=== PATIENT | female | born 1950 | race Caucasian/White ===

== ENCOUNTER 2020-11-27 14:16 | Emergency (ER) | payer OTHER ==
--- OUTSIDE RECORDS SUMMARY | 2020-11-27 14:19 | XMS REPORT | Continuity of Care Document ---
:1950 Author Organization [facility] t Address [address] [place] [address] [place] [address] Care Team Providers Name Role Phone Meño MCGEE, Phoebej Primary Care Physician Chon Moon MD Attending Clinician Rosette Montes Attending Clinician Dwaine Carbajal Attending Clinician Martin Garcia Attending Clinician LORY KHALIL Attending Clinician Unavailable LORY KHALIL Admitting Clinician Unavailable Payers Payer Name Policy Type Policy Effective Date Expiration Date Sour ce Number UHC MEDICAREUHC [id number] 2020 [place] MEDICARE 00:00:00 Bahai [id number] /07/2020-PresentHM O Problems Condition Condition Condition Status Onset Resolution Last Treating Co mments Source Name Details Category Date Date Treatment Clinician Date Deep vein Deep vein Disease Active Suzanne sosan thrombosis thrombosis 7-12 Me thodi 00:00: st 00 Bowel Bowel Disease Active [facility] obstruct[facility] obstructio 9-12 Inge kes - n n [facility]: [facility] Arthritis Problem Active 2019-01-08 Me moria (disorder) 11-04 13:55:47 l 00:00: Osmar Arthritis 00 (disorder) Active 11/04/2014 Problem 01/08/2019 Data migrated from [facility] on 01/29/15.Flash a migrated from [facility] on 12/24/14. [facility] ARTHRITIS Condition Active 2014-11-04 Memoria - 14:41:12 l 00:00: [place] ARTHRITIS 00 Active 11/04/2014 Condition 5 [facility] OTHER Condition Active 2014-11-04 Mem oria UNSPECIFIE 12-31 14:41:12 l D BACK OTHER 00:00: [place] DISORDERS UNSPECIFIE 00 D BACK DISORDERS Active 12/31/2013 Condition 5 [facility] Cobalamin Problem Active 2019-01-08 Me moria deficiency 12-14 13:55:47 l (disorder) 00:00: Nathan n Cobalamin 00 deficiency (disorder) Active 12/14/2013 Problem 01/08/2019 Data migrated from [facility] on 12/21/14. [facility] CELLULITIS Condition Active 2014-11-04 Memoria 12-14 14:41:12 l 00:00: [place] CELLULITIS 00 Active 12/14/2013 Condition 5 [facility] VITAMIN Condition Active 2014-11-04 Me moria B12 12-14 14:41:12 l DEFICIENCY VITAMIN 00:00: Her villatoro B12 00 DEFICIENCY Active 12/14/2013 Condition 5 [facility] ABDOMINAL Condition Active 2014-11-04 Memoria PAIN, 9- 14:41:12 l ACUTE 00:00: [place] ABDOMINAL 00 PAIN, ACUTE Active 03/27/2013 Condition 5 [facility] ACUTE Condition Active 2014-11-04 Mem oria SINUSITIS, 02-21 14:41:12 l UNSPECIFIE ACUTE 00:00: Miladys nn D SINUSITIS, 00 UNSPECIFIE D Active 02/22/2012 Condition 5 [facility] ACUTE Condition Active 2014-11-04 Mem oria BRONCHITIS 02-21 14:41:12 l ACUTE 00:00: [place] BRONCHITIS 00 Active 02/22/2012 Condition 5 [facility] Abdominal Problem Resolve 2019-01-08 M emoria aortic d 13:55:47 l aneurysm [place] (disorder) Abdominal aortic aneurysm (disorder) Resolved Problem 01/08/2019 [facility] Backache Problem Resolve 2019-01-08 Me moria (finding) d 13:55:47 l Backache Nathan n (finding) Resolved Problem 01/08/2019 [facility] Atheroscle Problem Resolve 2019-01-08 Memoria rosis of d 13:55:47 l coronary [place] artery Atheroscle (disorder) rosis of coronary artery (disorder) Resolved Problem 01/08/2019 [facility] Hypertensi Problem Resolve 2019-01-08 Memoria ve d 13:55:47 l disorder, [place] systemic Hypertensi arterial ve (disorder) disorder, systemic arterial (disorder) Resolved Problem 01/08/2019 [facility] Proteinuri Problem Resolve 2019-01-08 Memoria a d 13:55:47 l (finding) Osmar Proteinuri a (finding) Resolved Problem 01/08/2019 [facility] Raynaud's Problem Resolve 2019-01-08 M emoria phenomenon d 13:55:47 l (disorder) Nathan n Raynaud's phenomenon (disorder) Resolved Problem 01/08/2019 [facility] Cerebrovas Problem Resolve 2019-01-08 Memoria cular d 13:55:47 l accident O[place] (disorder) Cerebrovas cular accident (disorder) Resolved Problem 01/08/2019 [facility] Benign Problem Active 2019-01-08 Memor ia hypertensi 13:55:47 l on Benign [place] (disorder) hypertensi on (disorder) Active Problem 01/08/2019 Data migrated from [facility] on 12/21/14. Medical Group Coronary Problem Active 2019-01-08 Mem oria arterioscl 13:55:47 l erosis Coronary Nathan n (disorder) arterioscl erosis (disorder) Active Problem 01/08/2019 Data migrated from [facility] on 12/21/14. [facility] Group Crohn's Problem Active 2019-01-08 Shoaib elpidio disease 13:55:47 l (disorder) Crohn's Her villatoro disease (disorder) Active Problem 01/08/2019 Data migrated from [facility] on 12/21/14. [facility] Allergic Problem Active 2019-01-08 Mem oria rhinitis 13:55:47 l (disorder) Allergic He rmann rhinitis (disorder) Active Problem 01/08/2019 [facility] CAD Condition Active 2014-11-04 Mem oria 14:41:12 l CAD [place] Active Condition 11/04/2014 Medical Group HTN Condition Active 2014-11-04 Mem oria 14:41:12 l HTN Osmar Active Condition 11/04/2014 [facility] Group CROHN'S Condition Active 2014-11-04 Me moria DISEASE 14:41:12 l CROHN'S Osmar DISEASE Active Condition 11/04/2014 [facility] Group RAYNAUDS Condition Active 2014-11-04 M emoria SYNDROME 14:41:12 l RAYNAUDS Nathan n SYNDROME Active Condition 11/04/2014 Medical Group HEMATURIA, Condition Active 2014-11-04 Memoria HX OF 14:41:12 l [place] HEMATURIA, HX OF Active Condition 11/04/2014 [facility] Allergies, Adverse Reactions, Alerts Allergy Allergy Status Severity Reaction(s) Onset Inactive Treating Comm ents Source Name Type Date Date Clinician Levoflox Propensi Active Hives [place] ac[place] ty to 02-02 [facility] adverse 00:00: st reaction 00 s to drug Morphine Propensi Active Anaphylaxis Throat [place] ty to 02-02 closes [facility] adverse 00:00: off st reaction 00 s to drug Levoflox Propensi Active [facility]05 [facility] adverse [facility] reaction 00 Center s Morphine Drug Active [facility] Breath 04-05 [facility] morphine morphine Active Memori a <sup>1, <sup>1, 02-21 l 2</sup> 2</sup> 05:00: [place] 00 levoflox levoflox Active Memori a acin<sup acin<sup 7-31 l >3</sup> >3</sup> 05:00: Nathan n 00 ASTRAMOR ASTRAMOR Active Memori a PH PH 7-31 l 00:00: LEVAQUIN LEVAQUIN Active Memori a 7-31 l 00:00: Social History Social Habit Start Date Stop Date Quantity Comments Source Sex Ass[birth year] At [birth year] Jack españa 00:00:00 00:00:00 Smoking Status Start Date Stop Date Source Social History 2018-03-14 19:49:11 [facility] Medications Ordered Filled Start Stop Current Ordering Indication Dosage Frequency Signature Comments Components Source Medication Medication Date Date Medication? Clinician (SIG) Name Name Acetaminoph 2017-07 Yes 1 tab, PO, Memoria en 325 MG / 0-26 BID, PRN l Hydrocodone 14:44: Pain, # 60 [place] Bitartrate 00 tab, 0 7.5 MG Oral Refill(s), Tablet given to [Elaine patient 7.5/325] Acetaminoph No 1 tab, PO, Memoria en 325 MG / 9-25 BID, PRN l Hydrocodone 18:19: Pain, # 60 Osm[place] Bitartrate 00 tab, 0 7.5 MG Oral Refill(s), Tablet given to [Elaine patient 7.5/325] Acetaminoph No 1 tab, PO, Memoria en 325 MG / 8-30 BID, PRN l Hydrocodone 14:40: Pain, # 60 [place] Bitartrate 00 tab, 0 7.5 MG Oral Refill(s), Tablet given to [Elaine patient 7.5/325] predniSONE Yes See Memoria 10 mg oral 8-21 Instructio l tablet 20:30: ns, 1 tab Nathan n 36 PO BID for 1 week then 1 po daily for 1 week then 1/2 pill daily for 1 week., # 30 tab, 1 Refill(s), Pharmacy: [facility] [address] Alprazolam Yes 0.25 mg = Me moria 0.25 MG 8-21 1 tab, PO, l Oral Tablet 20:29: PRN, PRN He rmann [Xanax] 48 as needed for anxiety, # 30 tab, 3 Refill(s) Metronidazo 2018-0 Yes 250 mg = 1 Memoria le 250 MG 8-21 tab, PO, l Oral Tablet 20:28: TID, # 30 H ermann [Flagyl] 56 tab, 1 Refill(s), Pharmacy: [facility] [address] Omeprazole 2018-0 Yes 20 mg = 1 Me moria 20 MG 8-21 cap, PO, l Enteric 20:11: Daily, # Nathan n Coated 35 30 cap, 11 Capsule Refill(s), [Prilosec] Pharmacy: [facility] [address] isosorbide 2017- Yes 30 mg = 1 Me moria mononitrate 8-21 tab, PO, l 30 mg oral 19:54: QAM, # 30 He rmann tablet, 00 tab, 0 extended Refill(s) release Acetaminoph 2017-0 No 1 tab, PO, Memoria en 325 MG / 7-19 BID, PRN l Hydrocodone 22:01: Pain, # 60 [place] Bitartrate 00 tab, 0 7.5 MG Oral Refill(s), Tablet given to [Elaine patient 7.5/325] metoprolol 2018-0 Yes 25mg Q.5D Take 25 mg [place] tartrate 7-17 by mouth 2 Metho di (LOPRESSOR) 12:46: (two) st 25 mg 20 times a tablet day. isosorbide 2018-0 Yes 30mg QD Take 30 mg [place] mononitrate 7-17 by mouth Meth ortiz (IMDUR) 30 12:46: daily. st MG 24 hr 20 tablet rivaroxaban 2018-0 Yes 20mg QD Take 20 mg Santiago (XARELTO) 7-17 by mouth Method i 20 mg 12:46: daily. st tablet 20 omeprazole 2018-0 Yes 20mg QD Take 20 mg [place] (PriLOSEC) 7-17 by mouth Metho di 20 MG 12:46: daily. st capsule 20 Acetaminoph 2018-0 Yes 1 tab, PO, Memoria en 325 MG / 4-26 BID, PRN l Hydrocodone 22:17: Pain, # 60 Osm[place] Bitartrate 00 tab, 0 7.5 MG Oral Refill(s), Tablet given to [Elaine patient 7.5/325] Acetaminoph No 1 tab, PO, Memoria en 325 MG / 3-29 BID, PRN l Hydrocodone 21:21: Pain, # 60 Osm[place] Bitartrate 00 tab, 0 7.5 MG Oral Refill(s), Tablet given to [Elaine patient 7.5/325] Advair Yes 1 puff, Memoria Diskus 250 3-21 INHALATION l mcg-50 mcg 16:56: , BID, # 1 H ermann inhalation 00 ea, 3 powder Refill(s) predniSONE Yes See Memoria 10 mg oral 3-21 Instructio l tablet 16:51: ns, 1 tab Nathan n 35 PO BID for 1 week then 1 po daily for 1 week then 1/2 pill daily for 1 week., # 30 tab, 1 Refill(s) Metronidazo Yes 250 mg = 1 Memoria le 250 MG 3-21 tab, PO, l Oral Tablet 16:50: TID, # 30 H ermann [Flagyl] 55 tab, 1 Refill(s) Symbicort Yes 2 puff, Memor ia 80/4.5 3-21 INHALATION l inhalation 16:15: , BID, # Her villatoro aerosol 00 6.9 gm, 0 with Refill(s) adapter Acetaminoph No 1 tab, PO, Memoria en 325 MG / 3-01 BID, PRN l Hydrocodone 14:28: Pain, # 60 [place] Bitartrate 00 tab, 0 7.5 MG Oral Refill(s), Tablet given to [Elaine patient 7.5/325] Alprazolam Yes 0.25 mg = Me moria 0.25 MG 2-14 1 tab, PO, l Oral Tablet 14:45: PRN, PRN He rmann [Xanax] 00 as needed for anxiety, # 30 tab, 3 Refill(s) Acetaminoph No 1 tab, PO, Memoria en 325 MG / 2-01 BID, PRN l Hydrocodone 21:50: Pain, # 60 [place] Bitartrate 00 tab, 0 7.5 MG Oral Refill(s), Tablet given to [Elaine patient 7.5/325] predniSONE 2016-07 Yes 10 mg = 1 Me moria 10 mg oral 2-29 tab, PO, l tablet 18:11: BID, # 20 Nathan n 00 tab, 0 Refill(s), Pharmacy: [facility] Metronidazo 2016-07 Yes 250 mg = 1 Memoria le 250 MG 2-29 tab, PO, l Oral Tablet 18:11: TID, # 30 H ermann [Flagyl] 00 tab, 0 Refill(s), Pharmacy: [facility] Metronidazo 2016-07 No 250 mg = 1 Memoria le 250 MG 2-29 tab, PO, l Oral Tablet 16:13: TID, # 30 H ermann [Flagyl] 00 tab, 0 Refill(s) predniSONE 2016-07 No 10 mg = 1 Me moria 10 mg oral 2-29 tab, PO, l tablet 16:13: Daily, # Osmar 00 14 tab, 0 Refill(s) adalimumab Yes Crohn's 40mg Q14D Inject [address] [facility] (HUMIRA) 40 9-13 disease mg [facility] - mg/0.8 mL 15:01: subcutaneo Me dical injection 39 usly every Cent er 14 (fourteen) days. rivaroxaban Yes 20mg QD Take [address] [facility] (XARELTO) 9-13 by mouth [facility] - 20 mg Tab 15:01: daily. Medica l tablet 39 Center metoprolol Yes 25mg Q.5D Take [address] (LOPRESSOR) 9-13 by mouth 2 Inge kes - 25 MG 15:01: (two) Medical tablet 39 times Center daily. omeprazole Yes 20mg QD Take [address] (PRILOSEC) 9-13 by mouth [facility] - 20 MG 15:01: daily. Medical capsule 39 Center HYDROcodone Yes 1{tbl} Take [address] -acetaminop 9-13 tablet by Maximiliano vasquez (NORCO 15:01: mouth Medica l 7.5-325) 39 every 4 Center 7.5-325 mg (four) per tablet hours as needed for Pain. ZANTAC 150 Yes BID Memoria MG TABS 4-13 l 14:41: [place] 12 XANAX 0.25 2014-0 Yes 1 po as Shoaib elpidio MG TABS 4-13 needed l 14:41: 12 CEFTIN 250 2014-0 Yes 1 po bid Mem oria MG TABS 4-13 l 00:00: MEDROL 2014-0 Yes as Memoria (MARISELA) 4 MG 4-08 directed l TABS 00:00: PREDNISONE 2014-0 Yes 1 po bid Mem oria 5 MG TABS 7-31 l 00:00: METRONIDAZO 2013-0 Yes 1 po tid Me moria LE 250 MG 7-31 l TABS 00:00: PROMETHAZIN 2013-0 Yes 1 po q6h Me moria E HCL 25 MG 7-31 prn nausea l TABS 00:00: PREDNISONE 2013-0 Yes 1 po bid Mem oria 5 MG TABS 7-31 l 00:00: PROMETHAZIN 2013-0 Yes 1 po q6h Me moria E HCL 25 MG 7-31 prn nausea l TABS 00:00: PREDNISONE 2014-0 No 1 po bid Mem oria 5 MG TABS 7-31 l 00:00: METRONIDAZO 2013-0 No 1 po tid Me moria LE 250 MG 7-31 l TABS 00:00: PREDNISONE 2013-0 No 1 po bid Mem oria 5 MG TABS 7-31 l 00:00: CYCLOBENZAP 2013-0 No 1 po qhs Me moria RINE HCL 10 6-09 l MG TABS 00:00: MOBIC 15 MG 2013-0 No 1 po qam Me moria TABS 6-09 pc l 00:00: CYCLOBENZAP 2013-0 No 1 po qhs Me moria RINE HCL 10 6-09 l MG TABS 00:00: CYCLOBENZAP 2013-0 No 1 po qhs Me moria RINE HCL 10 6-09 l MG TABS 00:00: KEFLEX 500 2013-0 No 1 po td Shoaib elpidio MG CAPS 5-23 l 00:00: BACTROBAN 2 2013-0 No apply to Me moria % OINT 5-23 leg bid l 00:00: CYANOCOBALA 2012-07 Yes 1 cc im q M emoria MIN 1000 0-16 week l MCG/ML SOLN 00:00: XARELTO 20 Yes 1 po qd Shoaib elpidio MG TABS 9-16 l 00:00: PREDNISONE No 1/2 po qpm M emoria 10 MG TABS 9-16 l 00:00: PREDNISONE No 1/2 po qpm M emoria 10 MG TABS 9-16 l 00:00: PREDNISONE No 1/2 po qpm M emoria 10 MG TABS 9-16 l 00:00: METRONIDAZO No 1 po tid Me moria LE 500 MG 9-05 l TABS 00:00: METRONIDAZO No 1 po tid Me moria LE 500 MG 9-05 l TABS 00:00: ASPIRIN LOW No 1 po daily Memoria DOSE 81 MG 9-03 l TABS 00:00: PLAVIX 75 No 1 po daily Me moria MG TABS 9-03 l 00:00: ISOSORBIDE Yes TAKES ONE Me moria MONONITRATE 9-03 DAY l ER 30 MG 00:00: 24H-TAB METOPROLOL Yes TAKES Memori a TARTRATE 25 9-03 TWICE A l MG TABS 00:00: DAY PO ISOSORBIDE Yes TAKES ONE Me moria MONONITRATE 9-03 DAY l ER 30 MG 00:00: [place] [id number] METOPROLOL Yes TAKES Memori a TARTRATE 25 9-03 TWICE A l MG TABS 00:00: DAY PO METOPROLOL Yes TAKES Memori a TARTRATE 25 9-03 TWICE A l MG TABS 00:00: DAY PO NORCO Yes 1 po q6h Memoria 7.5-325 MG 2-28 prn pain l TABS 00:00: BIAXIN 500 No 1 po bid Mem oria MG TABS 7-31 pc l 00:00: TUSSIONEX 2011-0 No 1 tsp harry q Me moria PENNKINETIC 7-31 12 h prn l ER 10-8 00:00: cough [place] MG/5ML LQCR 00 Vital Signs Vital Name Observation Time Observation Value Comments Source Body height 2020-08-06 12:53:00 165.1 cm Jack Stafford Body weight 2020-08-06 12:53:00 55.792 kg Jack [place] BMI 2020-08-06 12:53:00 20.47 kg/m2 Santiago Bahai BMI Calculated 2018-03-14 19:46:00 Memori al [place] Weight 2018-03-14 19:46:00 [facility] [place] Height 2018-03-14 19:46:00 165.1 cm [facility] [place] Systolic (mm Hg) 2018-03-14 19:46:00 Shoaib rial [place] Diastolic (mm Hg) 2018-03-14 19:46:00 Mem orial [place] Heart Rate 2018-03-14 19:46:00 [facility] [place] Weight 2017-10-12 16:11:00 [facility] [place] BMI Calculated 2017-10-12 16:11:00 Memori al [place] Height 2017-10-12 16:11:00 165.1 cm [facility] [place] Heart Rate 2017-10-12 16:11:00 [facility] [place] Systolic (mm Hg) 2017-10-12 16:11:00 Shoaib rial [place] Diastolic (mm Hg) 2017-10-12 16:11:00 Mem orial [place] Weight 2014-11-04 19:41:12 [facility] [place] Temperature Oral (F) 2014-11-04 19:41:12 98 F [facility] [place] Heart Rate 2014-11-04 19:41:12 [facility] [place] Systolic (mm Hg) 2014-11-04 19:41:12 Shoaib rial [place] Diastolic (mm Hg) 2014-11-04 19:41:12 Mem orial [place] Weight 2014-06-11 22:10:21 [facility] [place] Temperature Oral (F) 2014-06-11 22:10:21 97 F [facility] [place] Heart Rate 2014-06-11 22:10:21 [facility] [place] Systolic (mm Hg) 2014-06-11 22:10:21 Shoaib rial [place] Diastolic (mm Hg) 2014-06-11 22:10:21 Mem orial [place] Weight 2014-03-05 21:20:31 [facility] [place] Heart Rate 2014-03-05 21:20:31 [facility] [place] Systolic (mm Hg) 2014-03-05 21:20:31 Shoaib rial [place] Diastolic (mm Hg) 2014-03-05 21:20:31 Mem orial [place] Weight 2014-02-21 19:57:22 [facility] [place] Temperature Oral (F) 2014-02-21 19:57:22 98.4 F [facility] [place] Heart Rate 2014-02-21 19:57:22 [facility] [place] Systolic (mm Hg) 2014-02-21 19:57:22 Shoaib rial [place] Diastolic (mm Hg) 2014-02-21 19:57:22 Mem orial [place] Weight 2013-12-31 19:41:11 [facility] [place] Heart Rate 2013-12-31 19:41:11 [facility] [place] Temperature Oral (F) 2013-12-31 19:41:11 97.3 F [facility] [place] Systolic (mm Hg) 2013-12-31 19:41:11 Shoaib rial [place] Diastolic (mm Hg) 2013-12-31 19:41:11 Mem orial [place] Weight 2013-12-14 14:54:41 [facility] [place] Heart Rate 2013-12-14 14:54:41 [facility] [place] Systolic (mm Hg) 2013-12-14 14:54:41 Shoaib rial [place] Diastolic (mm Hg) 2013-12-14 14:54:41 Mem orial [place] Weight 2013-05-15 17:20:33 [facility] [place] Heart Rate 2013-05-15 17:20:33 [facility] [place] Systolic (mm Hg) 2013-05-15 17:20:33 Shoaib rial [place] Diastolic (mm Hg) 2013-05-15 17:20:33 Mem orial [place] Weight 2013-05-09 15:51:21 [facility] [place] Heart Rate 2013-05-09 15:51:21 [facility] [place] Systolic (mm Hg) 2013-05-09 15:51:21 Shoaib rial [place] Diastolic (mm Hg) 2013-05-09 15:51:21 Mem orial [place] Weight 2013-04-09 18:32:21 [facility] [place] Heart Rate 2013-04-09 18:32:21 [facility] [place] Systolic (mm Hg) 2013-04-09 18:32:21 Shoaib rial [place] Diastolic (mm Hg) 2013-04-09 18:32:21 Mem orial [place] Weight 2013-03-27 18:35:10 [facility] [place] Heart Rate 2013-03-27 18:35:10 [facility] [place] Systolic (mm Hg) 2013-03-27 18:35:10 Shoaib rial [place] Diastolic (mm Hg) 2013-03-27 18:35:10 Mem orial [place] Height 2012-02-22 19:54:11 [facility] [place] Weight 2012-02-22 19:54:11 [facility] [place] Heart Rate 2012-02-22 19:54:11 [facility] [place] Systolic (mm Hg) 2012-02-22 19:54:11 Shoaib rial [place] Diastolic (mm Hg) 2012-02-22 19:54:11 Mem orial [place] Temperature Oral (F) 2012-02-22 19:54:11 97 F [facility] [place] Procedures Procedure Date / Time Performing Clinician Source Performed CT ENTEROGRAPHY 2020-08-06 14:06:34 Jack Huffman POC CREATININE 2020-08-06 13:12:00 Jad Moon ESTIMATED GFR 2020-08-06 13:12:00 Jad Moon ALBUMIN LEVEL 2020-07-31 16:30:00 Jack Huffman PREALBUMIN LEVEL 2020-07-31 16:30:00 Jack Huffman smoking/tobacco cessation, 2013-03-27 18:35:10 Pam Prasad patient education and counseling mammogram 2006-10-07 18:42:00 Renard villatoro bone density 2006-10-07 18:41:30 Renard villatoro Appendectomy [facility] [place] Cholecystectomy [facility] [place] Hip [facility] replacement<sup>1</sup> Total knee [facility] [place] replacement<sup>2</sup> Plan of Care Planned Activity Planned Date Details Comments Source Future Scheduled 2021-02-22 INFLUENZA VACCINE [place] [facility] Test 00:00:00 [code = INFLUENZA VACCINE] Future Scheduled 2000 BREAST CANCER [facility]odist Test 00:00:00 SCREENING [code = BREAST CANCER SCREENING] Future Scheduled 2000 COLONOSCOPY SCREENING [place] [facility]ai Test 00:00:00 [code = COLONOSCOPY SCREENING] Future Scheduled 2000 SHINGLES VACCINES (#1) H pushpa Bahai Test 00:00:00 [code = SHINGLES VACCINES (#1)] Future Scheduled 1968 Hepatitis C screening [place] [facility] Test 00:00:00 (procedure) [code = 483780790] Future Scheduled 1966 COVID-19 VACCINE (1) Suzannedonnell arguello Bahai Test 00:00:00 [code = COVID-19 VACCINE (1)] Future Scheduled 1956 65+ PNEUMOCOCCAL Santiago [facility]ai Test 00:00:00 VACCINE (1 of 2 - PPSV23) [code = 65+ PNEUMOCOCCAL VACCINE (1 of 2 - PPSV23)] Encounters Start End Encounter Admission Attending Care Care Encounter Source Date/Time Date/Time Type Type Clinicians Facility Department ID 2020-08-06 2020-08-06 Outpatient JAD [facility] [id number] [place] 00:00:00 00:00:[address] 2020-07-31 2020-07-31 [facility] [id number] [place] 00:00:00 00:00:[address] 2018-06-21 2018-06-21 Outpatient Solomon [facility] [id number] 08:00:00 08:00:00 Skye 26 Dwaine 2018-06-12 2018-06-12 Outpatient Solomon [facility] [id number] 15:15:00 15:15:00 Skye Isidro 2018-05-15 2018-05-16 Outpatient [facility] [id number] 15:11:00 23:59:59 41 2018-04-17 2018-04-18 [facility] [id number] 15:59:00 23:59:59 40 2018-03-14 2018-03-14 Outpatient Jose [facility] [id number] 14:45:00 23:59:59 Arjun Salazar 2018-02-08 2018-02-09 [facility] [id number] 13:57:00 23:59:59 39 2018-01-12 2018-01-13 Outpatient [facility] [id number] 11:43:00 23:59:59 38 2017-12-13 2017-12-14 Outpatient [facility] [id number] 10:05:00 23:59:59 37 2017-11-14 2017-11-15 Outpatient [facility] [id number] 09:26:00 23:59:59 36 2017-10-18 2017-10-19 Outpatient [facility] [id number] 09:57:00 23:59:59 35 2017-10-12 2017-10-12 Outpatient Estrellitager, [facility] [id number] 11:30:00 23:59:59 Arjun Salazar 2017-10-12 2017-10-12 Outpatient Dereksinger, MG [facility] [id number] 15:45:00 15:45:00 Arjun Salazar 2017-09-16 2017-09-17 Outpatient [facility] [id number] 13:04:00 23:59:59 34 2017-08-31 2017-09-01 Outpatient [facility] [id number] 10:26:00 23:59:59 33 2017-08-23 2017-08-24 Outpatient [facility] [id number] 08:36:00 23:59:59 32 2017-08-02 2017-08-02 Outpatient Dereksinger, MG [facility] [id number] 15:00:00 15:00:00 Arjun Salazar 2017-08-02 2017-08-02 Outpatient Dereksinger, MG [facility] [id number] 15:00:00 15:00:00 Arjun Salazar 2017-07-22 2017-07-23 Outpatient [facility] [id number] 09:49:00 23:59:59 31 2017 2017-06-28 Outpatient [facility] [id number] 10:13:00 23:59:59 30 Results Test Description Test Test Results Result Source Time Comments Comments CT Enterography 2020-07- Interface, Radiology Santiago 13 Results Incoming - Method ist 15:13:59 08/06/2020 3:17 PM CST EXAMINATION: CT ENTEROGRAPHYCLINICAL HISTORY: K50.10 Crohn's disease of large intestine without complications, crohsTECHNIQUE: Multiple axial images of the abdomen and pelvis were obtained during intravenous administration of iodinated contrast. Low density oral contrast was administered (CT enterography protocol). Sagittal and coronal computerized reformatted images were also obtained. All CT images were acquired using radiation dose lowering technique with automated exposure control and / or iterative reconstruction.COMPARISON : NoIMPRESSION:ABDOMEN:The following small bowel segment(s) appear abnormal: Locatio n: Neoterminal ileum (status post ileocolonic resection with anastomosis at the proximal-mid transverse colon)Length: 20 cm, series 601 images 63 through 86Wall thickening: mild (3-5 mm) Asymmetric: yesEnhancement: stratified Mural fat: noUlcerations: No definite ulcer is appreciated, though sensitivity decreased by underdistentionShotty associated mesenteric lymph nodes and vasa recta engorgementStricture: yes Length: 20 cm Upstream dilation: mild (3-4 cm)Penetrating disease: noChange from prior: n/a Location: Proximal ileum, series 601 images 82 through 59Length: 30 cmWall thickening: moderate (5-9 mm) Asymmetric: noEnhancement: stratifiedMural fat: noUlcerations: noSubjacent vasa recta prominence, and shotty ileocolic mesenteric lymph nodes.Stricture: yes Length: 8 Upstream dilation: moderate to severe (4 cm or more)Penetrating disease: noChange from prior: n/a Location: Proximal ileum, series 601 images 51 through 38, immediately caudal to the neoterminal ileumLength: 6 cmWall thickening: moderate (5-9 mm) Asymmetric: noEnhancement: TransmuralMural fat: noUlcerations: noThis erect engorgement.Stricture: yes Length: 6 Upstream dilation: moderate to severe (4 cm or more)Penetrating disease: noChange from prior: n/aRemainder of the small bowel is well maintained. 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 Loss of haustra throughout the remnant:, Which is also distended with fecal material.A 2.5 centers segment of circumferential luminal narrowing in the sigmoid on series 2 image 208. An air-fluid level in the upstream colon, though without distention. This may be peristalsis or an underlying stricture. The transverse colon is incompletely distended. The proximal transverse colon is upper normal with air-fluid level.Mesenteric venous occlusion: no Evaluation of solid abdominal organs is limited, as exam was tailored for small bowel evaluation, per enterography protocol.Cholecystectomy. Subcentimeter hepatic hypodensity in the left lobe, likely a cyst. Calcified granulomata. Mild scarring at the lung bases. Calcified plaque in the abdominal aorta. Subcentimeter renal hypodensities likely cysts.Fullness of the right renal collecting system with tortuosity of the right UPJ, suggesting mild UPJ obstruction. No delayed enhancement relative to the left kidney however. The left renal collecting system unremarkable.No other solid organ incidental findings are detected.PELVIS:Pelvic image quality is degraded by streak artifact from right hip arthroplasty.Borderline ileocolic lymphadenopathy reactive to the small bowel disease discussed above. Normal-sized periaortic and gastrohepatic ligament lymph nodes. No free fluid or fluid collection identified. Fibrofatty proliferation in the right hemiabdomen in association with the small bowel disease.The urinary bladder is distended, partially obscured by metal streak artifact, otherwise grossly unremarkable. The uterus not well seen, likely at least partially resected.Calcified gluteal injection granulomata.The bones are demineralized. There may be a small zone of osteonecrosis in the left femoral head superiorly. No cortical collapse.Mild to moderate symmetric bilateral sacroiliitis likely secondary to the Crohn's disease.SUMMARY: Active inflammatory Crohn's disease: yesModerate to severe active inflammation involving multiple segments of the proximal and neoterminal ileum, with strictured segments as detailed above. Fibrofatty proliferation of the subjacent mesentery, with puckering of the inflamed small bowel, and distortion of the vasculature. Close apposition of the neoterminal and proximal ileal inflamed segments, suggests impending fistula formation.Chronic Crohn's colitis with segments of luminal narrowing as above which may be peristalsis and or strictures. Colonoscopy correlation is advised.Bilateral sacroiliitis as extra intestinal manifestation of Crohn's disease, and possible small zone of osteonecrosis in the left femoral head also.Details and other findings as [id number] POCT-GLUCOSE METER 2017-04-05 21:04:00 Test Item Value Reference Range Interpretation Comme [facility] POC-GLUCOSE METER (BEHBCS) (test 152 mg/dL 70-110 H TESTED AT [address] POINT code = 1538) [facility] [id number] PROTHROMBIN TIME/[id number] 07:09:00 Test Item Value Reference Range Interpretation Comments PROTIME (BEAKER) (test code = 10.6 seconds 9.3-12.0 759) INR (BEAKER) (test code = 370) 1.0 <=5.9 RECOMMENDED COUMADIN/WARFARIN INR THERAPY RANGESSTANDARD DOSE: 2.0 - 3.0 Includes: PROPHYLAXIS forvenous thrombosis, systemic embolization; TREATMENT for venous thrombosis and/or pulmonary embolus.HIGH RISK: Target INR is 2.5-3.5 for patients with mechanical heart valves.[id number] 07:09:00 Test Item Value Reference Range Interpretation Comments PARTIAL THROMBOPLASTIN TIME 26.8 seconds 23.0-35.0 (BEAKER) (test code = 760) COMPREHENSIVE METABOLIC [id number] 05:24:00 Test Item Value Reference Range Interpretation Comments TOTAL PROTEIN 5.4 gm/dL 6.0-8.5 L (BEAKER) (test code = 770) ALBUMIN (BEAKER) 3.3 g/dL 3.5-5.0 L (test code = 1145) ALKALINE PHOSPHATASE 70 U/L 30-115 (BEAKER) (test code = 346) BILIRUBIN TOTAL 0.8 mg/dL 0.1-1.2 (BEAKER) (test code = 377) SODIUM (BEAKER) (test 140 meq/L 135-148 code = 381) POTASSIUM (BEAKER) 3.5 meq/L 3.6-5.5 L (test code = 379) CHLORIDE (BEAKER) 112 meq/L 98-106 H (test code = 382) CO2 (BEAKER) (test 19 meq/L 20-29 L code = 355) BLOOD UREA NITROGEN 20 mg/dL 10-26 (BEAKER) (test code = 354) CREATININE (BEAKER) 1.10 mg/dL 0.50-1.20 (test code = 358) GLUCOSE RANDOM 104 mg/dL 70-110 (BEAKER) (test code = 652) CALCIUM (BEAKER) 8.3 mg/dL 8.5-10.5 L (test code = 697) AST (SGOT) (BEAKER) 19 U/L 5-40 (test code = 353) ALT (SGPT) (BEAKER) 12 U/L 5-50 (test code = 347) EGFR (BEAKER) (test 50 mL/min/1.73 ESTIMA RADHA GFR IS code = 1092) sq m NOT ACCURATE CREATININE CLEARANCE IN PREDICTING GLOMERULAR FILTRATION RATE . ESTIMATED GFR I S NOT APPLICABLE FOR DIALYSIS PATIEN TS. [id number] 05:11:00 Test Item Value Reference Range Interpretation Comments MAGNESIUM (BEAKER) (test code = 1.8 mg/dL 1.5-3.0 627) CBC W/PLT COUNT & AUTO [id number] 04:59:00 Test Item Value Reference Range Interpretation Comments WHITE BLOOD CELL COUNT (BEAKER) 7.2 K/ L 4.0-10.0 (test code = 775) RED BLOOD CELL COUNT (BEAKER) 3.96 M/ L 4.00-5.00 L (test code = 761) HEMOGLOBIN (BEAKER) (test code = 12.5 GM/DL 12.0-15.0 410) HEMATOCRIT (BEAKER) (test code = 37.9 % 36.0-45.0 411) MEAN CORPUSCULAR VOLUME (BEAKER) 95.8 fL 82.0-99.0 (test code = 753) MEAN CORPUSCULAR HEMOGLOBIN 31.6 pg 27.0-33.0 (BEAKER) (test code = 751) MEAN CORPUSCULAR HEMOGLOBIN CONC 33.0 GM/DL 32.0-36.0 (BEAKER) (test code = 752) RED CELL DISTRIBUTION WIDTH 13.2 % 10.3-14.2 (BEAKER) (test code = 412) PLATELET COUNT (BEAKER) (test 192 K/CU MM 150-430 code = 756) MEAN PLATELET VOLUME (BEAKER) 8.0 fL 6.5-10.5 (test code = 754) NUCLEATED RED BLOOD CELLS 0 /100 WBC 0-0 (BEAKER) (test code = 413) NEUTROPHILS RELATIVE PERCENT 74 % (BEAKER) (test code = 429) LYMPHOCYTES RELATIVE PERCENT 14 % (BEAKER) (test code = 430) MONOCYTES RELATIVE PERCENT 11 % (BEAKER) (test code = 431) EOSINOPHILS RELATIVE PERCENT 1 % (BEAKER) (test code = 432) BASOPHILS RELATIVE PERCENT 0 % (BEAKER) (test code = 437) NEUTROPHILS ABSOLUTE COUNT 5.30 K/ L 1.80-8.00 (BEAKER) (test code = 670) LYMPHOCYTES ABSOLUTE COUNT 1.00 K/ L 1.48-4.50 L (BEAKER) (test code = 414) MONOCYTES ABSOLUTE COUNT (BEAKER) 0.80 K/ L 0.00-1.30 (test code = 415) EOSINOPHILS ABSOLUTE COUNT 0.10 K/ L 0.00-0.50 (BEAKER) (test code = 416) BASOPHILS ABSOLUTE COUNT (BEAKER) 0.00 K/ L 0.00-0.20 (test code = 417) Szajnwjym0397-85-89 15:41:63192Pylkzdig PvuadjqBigugvins1751-20-64 15:41:003.6 [facility] MbyaqncCqehaxenz6579-74-35 15:41:003.2[facility] 2014-10-30 15:41:008.7[facility] WhkcfyxPehnessbj1014-90-26 15:41:000.94[facility] BztkaukKwjstevao2667-09-18 15:41:0014[facility] XoraxgtUgybbdlmv6942-51-92 15:41:0069[facility] ZathvgoHomzwxhsj4243-01-47 15:41:0020[facility] Osmar Tlmjddknb7153-87-56 15:41:0016[facility] YwsigqjScepensal3103-96-85 15:41:96570 [facility] EkirswhRypufakdv1810-97-99 15:41:0054[facility] 2014-10-30 15:41:0072[facility] WjceokyPpsrmgofs1141-46-45 15:41:000.95[facility] DwnvjgbJfwgeihaa1188-94-06 15:41:000.87[facility] ZhvdmheItrniiisls7736-35-54 15:41:0012.2[facility] PcuhcjdPpwxplficj6110-99-95 15:41:0038.1[facility] Xwcnyfxdr8962-71-81 20:43:22862Jvyxhiej BxftqknCnqgfmqhw6886-88-74 20:43:003.6 [facility] HewwkqgLjnhbdhij8653-29-42 20:43:59419Ypkngeny [facility] 2014-02-21 20:43:003.6[facility] NslecvzRhybygkao0708-18-42 20:43:003.6[facility] CxlihwoPkbhtatyq0866-26-97 20:43:008.9[facility] BohvobxFischiqgp3719-30-77 20:43:000.96[facility] VvasxmoRszywvvue4303-90-90 20:43:0010[facility] Xzbwxedtu8214-49-21 20:43:0066[facility] NiomauvDfngbjauj7468-31-37 20:43:0022 [facility] QayhbwgAwqauvzbz5457-23-45 20:43:0019[facility] 2014-02-21 20:43:38454Dgqpxybi OtzsrpuGhgtlpqai2528-36-79 20:43:0051[facility] GiheykyKfqxvhjeu2711-44-74 20:43:0064[facility] QggurcgUvjwuignq8407-43-46 20:43:000.96[facility] AwtkgbgBntqmpcbf0433-71-29 20:43:000.87[facility] Cdeqlmheec0365-92-72 20:42:0013.2[facility] UzivxuqKszelsklbe5250-42-67 20:42:00 40.5[facility] UbqdqjbXwapsboabw0041-92-77 20:42:0013.2[facility] 2014-02-21 20:42:0040.5[facility]
[2020-11-27 18:03] LABS: Absolute Lymphocytes (CBC) 0.3 K/uL (0.7-4.9); Basophils % 0.1 % (0-1.3); Hematocrit 26.4 % (36.0-45.0); Lymphocytes % 8.7 % (15.3-44.8); MPV 8.2 fL (7.6-11.3); RBC Red Blood Cell Count 2.79 M/uL (3.86-4.86)
[2020-11-27 18:16] LABS: ALT/SGPT 36 U/L (12-78); Albumin 1.4 g/dL (3.4-5.0); Alkaline Phosphatase 219 U/L (45-117); BUN Blood Urea Nitrogen 25 mg/dL (7-18); Bicarbonate 27 mmol/L (21-32); Bilirubin Direct < 0.1 mg/dL (0-0.2); Bilirubin Total 0.2 mg/dL (0.2-1.0); Glucose Level 93 mg/dL (74-106); Lipase 72 U/L (73-393); Protein, Total 3.8 g/dL (6.4-8.2); Sodium Level 138 mmol/L (136-145)
[2020-11-27 18:17] LABS: AST/SGOT 27 U/L (15-37); Potassium 4.1 mmol/L (3.5-5.1)
--- NOTE | 2020-11-27 19:55 | RAD REPORT ---
EXAM DESCRIPTION: CT - Abdomen Angio - 11/27/2020 7:38 pm CLINICAL HISTORY: Gastrointestinal bleeding COMPARISON: None TECHNIQUE: Computed tomography angiography of the abdomen obtained. 100 cc Isovue 370 was administer ed intravenously. Coronal and sagittal reconstruction were performed. All CT scans are performed using dose optimization technique as appropriate and may include automated exposure control or mA/KV adjustment according to patient size. 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 SMA and DOMINIC are patent No significant narrowing of the renal arteries Mild predominately calcified plaque within the abdominal aorta. No aneurysm. No dissection The wall of the right colon is mildly thickened. Mild thickening of the wall of several loops of smal l bowel IMPRESSION: Moderate high-grade stenosis celiac artery Mild thickening of the wall of right colon and small bowel may be a be secondary to inflammation or i schemia
[2020-11-27] MEDS ORDERED: NA CHLORIDE 0.9% 1,000 ML ONE (20:01)
[2020-11-27] MEDS ORDERED: HYDROCODONE/APAP 10/325 TAB ONE (20:04)
--- NOTE | 2020-11-27 20:32 | EDPHYS ---
Physician Documentation [facility] Name: Sheron Heller Age: 70 yrs Sex: Female : 1950 Arrival Date: 11/27/2020 Time: 14:19 Bed 14 Private MD: ED Physician Chung Rider HPI: 11/27 15:01 This 70 yrs old Female presents to ER via Wheelchair with complaints of jmm Rectal Bleeding. 15:01 The patient presents to the emergency department with bleeding from the rectum/anus. jmm Onset: The symptoms/episode began/occurred 1 day(s) ago. Modifying factors: The symptoms are alleviated by nothing, The symptoms are aggravated by nothing. Associate signs and symptoms: Pertinent positives: abdominal pain in the right lower quadrant and left lower quadrant, Pertinent negatives: fever. The patient has experienced similar episodes in the past. This is a 70 year old female with a history of crohns disease, CAD, that presents to the ED with complaints of rectal bleeding, fatigue, lower abdominal pain. patient states having an episode of bright red blood in stool yesterday. patient states she discontinued her xarelto at that point. Patient was evaluated at [facility] but left AMA. Patient states she now wants to be admitted to this hospital under the care of Dr. Lazaro. . Historical: - Allergies: 15:18 Morphine; aa5 15:18 Levaquin; aa5 - PMHx: 15:18 Chron's; Atrial Fib; Myocardial infarction; Hypertension; aa5 - PSHx: 15:18 heart stent 11/15/20; aa5 - Immunization history:: Adult Immunizations unknown. - Social history:: Smoking status: Patient reports the use of cigarette tobacco products, smokes one pack cigarettes per day. ROS: 15:01 Constitutional: Negative for fever, chills, and weight loss, Cardiovascular: Negative jmm for chest pain, palpitations, and edema, Respiratory: Negative for shortness of breath, cough, wheezing, and pleuritic chest pain. 15:01 Abdomen/GI: Positive for diarrhea, rectal bleeding. 15:01 All other systems are negative. Exam: 15:01 Constitutional: This is a well developed, well nourished patient who is awake, alert, jmm and in no acute distress. Head/Face: atraumatic. Eyes: EOMI, no conjunctival erythema appreciated ENT: Moist Mucus Membranes Neck: Trachea midline, Supple Chest/axilla: Normal chest wall appearance and motion. Cardiovascular: Regular rate and rhythm. No edema appreciated Respiratory: Normal respirations, no respiratory distress appreciated 15:01 Back: Normal ROM Skin: General appearance color normal MS/ Extremity: Moves all extremities, no obvious deformities appreciated, no edema noted to the lower extremities Neuro: Awake and alert, normal gait Psych: Behavior is normal, Mood is normal, Patient is cooperative and pleasant 15:01 Abdomen/GI: Inspection: abdomen appears normal, Bowel sounds: normal, Palpation: soft, Rectal exam: Stool: grossly bloody. Vital Signs: 14:57 BP 122 / 81; Pulse 102; Resp 18 S; Temp 98.2(O); Pulse Ox 99% on R/A; Weight 54.43 kg aa5 (R); Height 5 ft. 5 in. (165.10 cm) (R); 15:26 BP 121 / 81; Pulse 103; Pulse Ox 96% on R/A; ap3 18:00 BP 111 / 75; Pulse 90; Pulse Ox 98% on R/A; ap3 19:14 BP 99 / 61; Pulse 92; Pulse Ox 97% on R/A; ap3 20:00 BP 110 / 65; Pulse 85; Resp 18; Pulse Ox 98% ; rr5 21:08 BP 119 / 75; Pulse 80; Resp 19; Pulse Ox 96% ; rr5 21:49 BP 111 / 62; Pulse 83; Resp 17; Pulse Ox 99% ; rr5 14:57 Body Mass Index 19.97 (54.43 kg, 165.10 cm) aa5 MDM: 15:01 Patient medically screened. noa 20:29 Data reviewed: vital signs, nurses notes. Counseling: I had a detailed discussion with [facility] the patient and/or guardian regarding: the historical points, exam findings, and any diagnostic results supporting the discharge/admit diagnosis, lab results, radiology results, the need to transfer to another facility. ED course: I discussed the patient with [facility] whom accepted the patient for admission. . 11/27 15:06 Order name: Basic Metabolic Panel; Complete Time: 18:24 [facility] 11/27 15:06 Order name: CBC with Diff [facility] 11/27 15: Order name: Hepatic Function; Complete Time: 18:24 [facility] 11/27 15:06 Order name: Lipase; Complete Time: 18:24 [facility] 11/27 15:06 Order name: Type And Screen [facility] 11/27 15:06 Order name: IV Saline Lock; Complete Time: 17:28 [facility] 11/27 15:06 Order name: Labs collected and sent; Complete Time: 17:29 [facility] 11/27 17:43 Order name: SARS-COV-2 RT PCR; Complete Time: 17:44 [facility] 11/27 19:16 Order name: CT Abdomen - Angio; Complete Time: 19:58 [facility] 11/27 21:09 Order name: CBC Smear Scan [facility] 11/27 17:53 Order name: Labs - recollect needed: recollect type and screen.; Complete Time: 21:08 aa5 Administered Medications: 19:48 Drug: Berkley (HYDROcodone-acetaminophen) 10 mg-325 mg 1 tabs {Note: rass 0.} Route: PO; rr5 20:40 Follow up: Response: No adverse reaction; RASS: Alert and Calm (0) rr5 19:53 Drug: NS 0.9% 1000 ml Route: IV; Rate: 1 bolus; Site: left antecubital; rr5 20:50 Follow up: Response: No adverse reaction; IV Status: Completed infusion; IV Intake: rr5 1000ml Disposition: 11/28 07:28 Co-signature as Attending Physician, Chung Rider MD I agree with the assessment and [facility] plan of care. Disposition: 11/27/20 20:31 Transfer ordered to Other Acute Care Facility. Diagnosis are Gastrointestinal hemorrhage, unspecified, Anemia. - Reason for transfer: Higher level of care. - Accepting physician is Dr. Mares. - Condition is Stable. - Problem is new. - Symptoms are unchanged. Signatures: Dispatcher [employer] Chung Byers MD MD cha Mickail, Joel, PA PA jmm Calderon, Audri, RN RN aa5 Deven Jones RN RN rr5 Corrections: (The following items were deleted from the chart) 11/27 17:00 15:17 Abdomen Pelvis W Con+CT.[facility] 15:14 CORONAVIRUS+MR.LAB.BRZ ordered. [facility] 21:50 20:31 11/27/2020 20:31 Transfer ordered to Other Acute Care Facility. Diagnosis is rr5 Gastrointestinal hemorrhage, unspecified; Anemia. Reason for transfer: Higher level of care. Accepting physician is Dr. Mares. Condition is Stable. Problem is new. Symptoms are unchanged. colleen
--- NOTE | 2020-11-27 20:32 | ER ---
Nurse's Notes [facility] Name: Sheron Heller Age: 70 yrs Sex: Female : 1950 Arrival Date: 11/27/2020 Time: 14:19 Bed 14 Private MD: Diagnosis: Gastrointestinal hemorrhage, unspecified;Anemia Presentation: 11/27 14:57 Chief complaint: Patient states: rectal bleeding that began yesterday. Pt reports she aa5 was sent here by Dr. Lazaro (GI doctor). Pt reports she takes Xarelto, Plavix, and ASA. Reports hx of Chron's. Pt also reports she was seen at [facility] yesterday and had CT scan done. 14:57 Coronavirus screen: At this time, the client does not indicate any symptoms associated aa5 with coronavirus-19. Ebola Screen: Patient negative for fever greater than or equal to 101.5 degrees Fahrenheit, and additional compatible Ebola Virus Disease symptoms. Initial Sepsis Screen: Does the patient meet any 2 criteria? No. Patient's initial sepsis screen is negative. Does the patient have a suspected source of infection? No. Patient's initial sepsis screen is negative. Risk Assessment: Do you want to hurt yourself or someone else? Patient reports no desire to harm self or others. Onset of symptoms was November 2020. 14:57 Acuity: SALLY 3 aa5 14:57 Method Of Arrival: Wheelchair aa5 Historical: - Allergies: 15:18 Morphine; aa5 15:18 Levaquin; aa5 - PMHx: 15:18 Chron's; Atrial Fib; Myocardial infarction; Hypertension; aa5 - PSHx: 15:18 heart stent 11/15/20; aa5 - Immunization history:: Adult Immunizations unknown. - Social history:: Smoking status: Patient reports the use of cigarette tobacco products, smokes one pack cigarettes per day. Screenin:26 Abuse screen: Denies threats or abuse. Nutritional screening: No deficits noted. ap3 Tuberculosis screening: No symptoms or risk factors identified. Fall Risk None identified. Assessment: 15:13 General: Appears in no apparent distress. Behavior is calm, cooperative, appropriate ap3 for age. Pain: Denies pain. Neuro: Level of Consciousness is awake, alert, obeys commands, Oriented to person, place, time, situation. Cardiovascular: Capillary refill < 3 seconds. Respiratory: Airway is patent Respiratory effort is even, unlabored, Respiratory pattern is regular, symmetrical. GI: Reports rectal bleeding, bloody stool. GI: Abd is soft and non tender X 4 quads. : No signs and/or symptoms were reported regarding the genitourinary system. EENT: No signs and/or symptoms were reported regarding the EENT system. Derm: No signs and/or symptoms reported regarding the dermatologic system. Musculoskeletal: Reports weakness in GENERALIZED WEAKNESS. 15:45 General: DR. CRAMER AT BEDSIDE ATTEMPTING IV ACCESS. ap3 16:[address]: [address] scan report per PA from [facility], received via aa5 fax, provider notified of report. . 18:11 Reassessment: Patient and/or family updated on plan of care and expected duration. Pain ap3 level reassessed. Patient is alert, oriented x 3, equal unlabored respirations, skin warm/dry/pink. General: NURSE ATTEMPTED TO REDRAW LABS. UNSUCCESSFUL. WILL CONTACT LAB FOR ASSISTANCE. . 19:20 General: Appears in no apparent distress. comfortable, Behavior is calm, cooperative, rr5 appropriate for age. Neuro: Level of Consciousness is awake, alert, obeys commands, Oriented to person, place, time. Cardiovascular: Capillary refill < 3 seconds Patient's skin is warm and dry. Respiratory: Airway is patent Respiratory effort is even, unlabored, Respiratory pattern is regular, symmetrical. GI: Reports rectal bleeding, bloody stool. : No signs and/or symptoms were reported regarding the genitourinary system. EENT: No signs and/or symptoms were reported regarding the EENT system. Derm: Skin temperature is warm. Musculoskeletal: Circulation, motion, and sensation intact. 19:53 Reassessment: Patient appears in no apparent distress at this time. back from CT scan. rr5 20:40 Reassessment: Patient appears in no apparent distress at this time. Patient and/or rr5 family updated on plan of care and expected duration. Pain level reassessed. Patient is alert, oriented x 3, equal unlabored respirations, skin warm/dry/pink. 21:27 Reassessment: Report called to Lupillo BARAKAT at [facility]. ea 21:49 Reassessment: Patient appears in no apparent distress at this time. Patient is alert, rr5 oriented x 3, equal unlabored respirations, skin warm/dry/pink. report given to [facility] awake alert vital signs taken and recorded. Vital Signs: 14:57 BP 122 / 81; Pulse 102; Resp 18 S; Temp 98.2(O); Pulse Ox 99% on R/A; Weight 54.43 kg aa5 (R); Height 5 ft. 5 in. (165.10 cm) (R); 15:26 BP 121 / 81; Pulse 103; Pulse Ox 96% on R/A; ap3 18:00 BP 111 / 75; Pulse 90; Pulse Ox 98% on R/A; ap3 19:14 BP 99 / 61; Pulse 92; Pulse Ox 97% on R/A; ap3 20:00 BP 110 / 65; Pulse 85; Resp 18; Pulse Ox 98% ; rr5 21:08 BP 119 / 75; Pulse 80; Resp 19; Pulse Ox 96% ; rr5 21:49 BP 111 / 62; Pulse 83; Resp 17; Pulse Ox 99% ; rr5 14:57 Body Mass Index 19.97 (54.43 kg, 165.10 cm) aa5 ED Course: 14:19 Patient arrived in ED. ds1 14:57 Arm band placed on. aa5 14:58 Devang Sam PA is PHCP. jmm 14:58 Chung Cramer MD is Attending Physician. jmm 15:00 Katie Burgess, YUVAL is Primary Nurse. ap3 15:17 Triage completed. aa5 15:26 Patient has correct armband on for positive identification. Placed in gown. Call light ap3 in reach. Side rails up X 1. Adult w/ patient. 18:24 transfer initiated to [facility]. mt 18:31 patient coordinator front desk at [facility] called to notify the patient can be transferred mt to [facility] if we can wait an hour. 19:07 Thelma Valenzuela called with their physician to do Doc to Doc consultation with Devang tt3 ADA Sam, provider of pt. 19:20 Inserted saline lock: 20 gauge in left antecubital area, using aseptic technique. rr5 ,using aseptic technique. received from AM shift. 19:38 CT Abdomen - Angio In Process Unspecified. EDMS 21:48 No provider procedures requiring assistance completed. Patient transferred, IV remains rr5 in place. intact, No redness/swelling at site. Administered Medications: 19:48 Drug: Ora (HYDROcodone-acetaminophen) 10 mg-325 mg 1 tabs {Note: rass 0.} Route: PO; rr5 20:40 Follow up: Response: No adverse reaction; RASS: Alert and Calm (0) rr5 19:53 Drug: NS 0.9% 1000 ml Route: IV; Rate: 1 bolus; Site: left antecubital; rr5 20:50 Follow up: Response: No adverse reaction; IV Status: Completed infusion; IV Intake: rr5 1000ml Intake: 20:50 IV: 1000ml; Total: 1000ml. rr5 Outcome: 20:31 ER care complete, transfer ordered by MD. macias 21:48 Transferred by ground EMS to [facility], Transfer form completed. rr5 21:48 Condition: stable 21:48 Instructed on the need for transfer. 21:50 Patient left the ED. rr5 Signatures: Dispatcher [employer] EDMS Devang Sam PA PA Leighann Dunn ds1 Maryanne Rosales, RN RN christiano5 Diane Heller mt, Elena, RN RN ea Prokisch, Amanda, RN RN alvaro3 Deven Jones RN RN rr5 Ford Parson tt3
[2020-11-27 21:09] LABS: Blood Morphology Comment NOT SEEN (NOT SEEN); Platelet Estimate ADEQ; White Blood Cell Scan OK (OK)
[2020-11-27 21:58] VITALS: TEMP 98.2
[2020-11-27 22:20] VITALS: BP 111/62; O2SAT 99
== END 2020-11-27 21:50 ==
LOC: ER 14:16
DX: D64.9 Anemia, unspecified (principal); I10 Essential (primary) hypertension; F17.210 Nicotine dependence, cigarettes, uncomplicated; Z20.822 Contact with and (suspected) exposure to COVID-19; Z88.1 Allergy status to other antibiotic agents; Z88.5 Allergy status to narcotic agent; Z95.818 Presence of other cardiac implants and grafts
CPT/HCPCS: 85025; 80048; 36415; 86900; 86850; 86901; 80076; 83690; 74175; 96360; 99285; U0003; Q9967; J7030